=== PATIENT | male | born 2000 ===

== ENCOUNTER 2024-06-20 06:37 | Day surgery (SDC) | payer BC, SELFPAY ==
[2024-06-20] VITALS (10 sets, daily range): BP systolic 127–151; BP diastolic 64–91; BMI 47.4
[2024-06-20] MEDS: NORMOSOL-R/PLASMALYTE-A 1000 IV (08:57)
[2024-06-20] MEDS: CELEBREX 200 MG PO (08:59)
[2024-06-20] MEDS: TYLENOL 1000 MG PO (08:59)
[2024-06-20] MEDS: DILAUDID 0.25 MG IV (12:07)
== END 2024-06-20 14:15 | disposition home or self-care (01) ==
LOC: SDS 06:37
PROVIDERS: ATTENDING PHYSICIAN Orthopaedic Surgery
DX: S83.511A Sprain of anterior cruciate ligament of right knee, initial encounter (principal); Y93.63 Activity, rugby
CPT/HCPCS: 29888; C1713